=== PATIENT | male | born 2000 | race Hispanic/Latino ===

== ENCOUNTER 2024-03-30 08:39 | Outpatient (CLI) | payer OTHER | END 2024-03-30 08:40 | disposition home or self-care (01) | LOC: CSHULT 08:39 | PROVIDERS: ATTEND Student in an Organized Health Care Education/Training Program | DX: L83 Acanthosis nigricans (principal); R79.89 Other specified abnormal findings of blood chemistry; E66.9 Obesity, unspecified; K76.9 Liver disease, unspecified | CPT/HCPCS: 76705 ==